=== PATIENT | male | born 1950 | race Caucasian/White ===

== ENCOUNTER 2021-07-10 09:12 | Outpatient (CLI) | payer MEDICARE | END 2021-07-10 09:13 | disposition home or self-care (01) | LOC: RT 09:12 | PROVIDERS: ATTEND Otolaryngology | DX: Z01.810 Encounter for preprocedural cardiovascular examination (principal); G47.33 Obstructive sleep apnea (adult) (pediatric) | CPT/HCPCS: 93005 ==

== ENCOUNTER 2021-08-24 08:55 | Emergency (ER) | payer BC, MEDICARE ==
--- NOTE | 2021-08-24 10:28 | XRAY Report ---
PROCEDURE: Chest 1 View X-Ray INDICATIONS: chest pain TECHNIQUE: One view of the chest was acquired. COMPARISON: None FINDINGS: Surgical changes and devices: There is a right-sided neurostimulator. Lungs and pleura: No pleural effusions or pneumothorax. Lungs are clear. Mediastinum: Mediastinal contours appear normal. Heart size is normal. Bones and chest wall: No suspicious bony lesions. Overlying soft tissues appear unremarkable. IMPRESSION: No acute cardiopulmonary process is seen. Right-sided neurostimulator. Reviewed by: Kimani Gifford MD on 08/24/2021 9:26 AM [facility] Approved by: Kimani Gifford MD on 08/24/2021 9:26 AM [facility] Station ID: [id number]
--- NOTE | 2021-08-24 10:55 | ED Physician Documentation ---
PD HPI URI - Stated complaint Stated Complaint: SOA/COUGH - Chief complaint Chief Complaint: Resp - History obtained from History obtained from: Patient - History of Present Illness Timing - onset: How many weeks ago (2) Timing duration: Weeks (2) Timing details: Gradual onset, Still present, Waxing and waning Associated symptoms: Nasal congestion, Productive cough. No: Fever Contributing factors: Other (immunized against covid). No: Sick contact Improves by: Rest, MDI/nebulizer Worsened by: Activity Similar symptoms before: Diagnosis (COPD) Recently seen: Not recently seen - Additional information Additional information: 70-year-old male with a history of COPD has developed a cough productive of yellow phlegm and some exertional dyspnea. He does have an albuterol inhaler which she states does seem to help a bit. He is now out of that. He has had to be on Symbicort previously and is continuing to take that. The patient is complaining of a tickle in the back of his throat that causes coughing paroxysms. He is coughing up yellow-green phlegm. He is having exertional dyspnea and when he stops to cough he is bringing up more phlegm. He has not had fever. He is immunized against Covid.He does not remember having to be on a course of prednisone with his COPD. Review of Systems Constitutional: denies: Fever Eyes: denies: Decreased vision Ears: denies: Ear pain Nose: reports: Rhinorrhea / runny nose, Congestion Throat: reports: Sore throat Cardiac: denies: Chest pain / pressure, Palpitations Respiratory: reports: Dyspnea, Cough GI: denies: Abdominal Pain, Nausea, Vomiting : denies: Dysuria, Frequency PD PAST MEDICAL HISTORY - Present Medications Home Medications: Ambulatory Orders Medication Instructions Recorded Confirmed Albuterol Sulf [Ventolin Hfa 1 - 2 puffs INH Q4HR PRN #1 inhaler 08/24/21 Inhaler] Amox/Clav 875/125 [Augmentin] 1 each PO Q12H #20 tablet 08/24/21 - Allergies Allergies/Adverse Reactions: Allergies Allergy/AdvReac Type Severity Reaction Status Date / Time No Known Drug Allergies Allergy Verified 08/24/21 09:13 PD ED PE NORMAL - Vitals Vital signs reviewed: Yes (Hypertensive) - General General: Alert and oriented X 3, No acute distress, Well developed/nourished - HEENT HEENT: Atraumatic, PERRL, EOMI, Other (The left TM is inflamed in the attic with distortion of landmarks the right is clear mucous membranes are dry) - Neck Neck: Supple, no meningeal sign, No bony TTP - Cardiac Cardiac: RRR, No murmur - Respiratory Respiratory: No respiratory distress, Clear bilaterally - Abdomen Abdomen: Soft, Non tender - Back Back: No CVA TTP, No spinal TTP - Derm Derm: Normal color, No rash - Extremities Extremities: No deformity, No edema - Neuro Neuro: Alert and oriented X 3, 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 parapertussis DNA (PCR) NOT DETECTED Nasal Coronavir 229E PCR NOT DETECTED Nasal Coronavir HKU1 PCR NOT DETECTED Nasal Coronavir NL63 PCR NOT DETECTED Nasal Coronavir OC43 PCR NOT DETECTED Nasal Enterovir/Rhinovir PCR NOT DETECTED Nasal Influenza B PCR NOT DETECTED Nasal Influenza A PCR NOT DETECTED Nasal Parainfluen 1 PCR NOT DETECTED Nasal Parainfluen 2 PCR NOT DETECTED Nasal Parainfluen 3 PCR NOT DETECTED Nasal Parainfluen 4 PCR NOT DETECTED Nasal RSV (PCR) NOT DETECTED Nasal B.pertussis DNA PCR NOT DETECTED Nasal C.pneumoniae (PCR) NOT DETECTED [place] Human Metapneumo PCR NOT DETECTED Nasal M.pneumoniae (PCR) NOT DETECTED Nasal SARS-CoV-2 (PCR) NOT DETECTED - Rads (name of study) chest Radiology: Prelim report reviewed (Impression: No acute cardiopulmonary process is seen. Right-sided neurostimulator.), EMP read indepedently, See rad report PD MEDICAL DECISION MAKING - ED course Complexity details: reviewed old records, reviewed results, re-evaluated marcela kaur, considered differential, d/w patient ED course: 70-year-old male with history of COPD has developed a cough productive of yellow phlegm he does endorse a tickle in the back of his throat causing the current coughing paroxysm and on examination he has otitis on the left side. His lungs sound clear to examination and a chest x-ray is without evidence of infiltrate. He is given a dose of dexamethasone his albuterol inhaler is refilled and we will place him on a course of Augmentin. Departure - Departure Disposition: 01 Home, Self Care Clinical Impression: Mild chronic obstructive pulmonary disease Otitis media Qualifiers: Otitis media type: suppurative Chronicity: acute Laterality: left Recurrence: not specified as recurrent Spontaneous tympanic membrane rupture: without spontaneous rupture Qualified Code(s): H66.002 - Acute suppurative otitis media without spontaneous rupture of ear drum, left ear Condition: Stable Instructions: ED COPD Flare, ED Otitis Media Acute Adult Follow-Up: Deonte Crawley MD [Primary Care Provider] - Prescriptions: Albuterol Sulf [Ventolin Hfa Inhaler] 1 - 2 puffs INH Q4HR PRN #1 inhaler PRN Reason: Shortness Of Air/Wheezing Amox/Clav 875/125 [Augmentin] 1 each PO Q12H #20 tablet Comments: Renny, today it appears you have an exacerbation of your COPD and a middle ear infection in the left ear. These 2 are related. The expectation is that with treatment given today you will begin to improve and steadily improve over the next several days. If you have worsening of symptoms or develop new symptoms follow-up here or with your primary care doctor. Medications -- albuterol inhaler and augmentin (antibiotic) have been e-scribed to [facility] in [place].
[2021-08-24 11:02] LABS: B. PARAPERTUSSIS- RESP PCR PAN NOT DETECTED; B. PERTUSSIS- RESP PCR PANEL NOT DETECTED; C. PNEUMONIAE- RESP PCR PANEL NOT DETECTED; CORONAVIRUS 229E-RESP PCR NOT DETECTED; CORONAVIRUS HKU1-RESP PCR NOT DETECTED; CORONAVIRUS NL63-RESP PCR NOT DETECTED; CORONAVIRUS OC43-RESP PCR NOT DETECTED; HUMAN METAPNEUMOVIRUS NOT DETECTED; INFLUENZA A- RESP PCR PANEL NOT DETECTED; INFLUENZA B - RESP PCR PANEL NOT DETECTED; M. PNEUMONIAE- RESP PCR PANEL NOT DETECTED; PARAINFLUENZA VIRUS 1 NOT DETECTED; PARAINFLUENZA VIRUS 2 NOT DETECTED; PARAINFLUENZA VIRUS 3 NOT DETECTED; PARAINFLUENZA VIRUS 4 NOT DETECTED; RHINOVIRUS/ENTEROVIRUS NOT DETECTED; RSV- RESP PCR PANEL NOT DETECTED; SARS-CoV-2 -RESP PCR PANEL NOT DETECTED
[2021-08-24] MEDS ORDERED: DEXAMETHASONE 10 MG/ML VIAL PO STA (11:26)
[2021-08-24] MEDS ORDERED: CHERRY SYRUP 10 ML UDC PO ONE (11:26)
[2021-08-24 11:40] VITALS: BP 146/97
== END 2021-08-24 11:40 | disposition home or self-care (01) ==
LOC: ED 08:55
DX: J44.9 Chronic obstructive pulmonary disease, unspecified (principal); H66.002 Acute suppurative otitis media without spontaneous rupture of ear drum, left ear; Z20.822 Contact with and (suspected) exposure to COVID-19
CPT/HCPCS: 71045; 87631; 99284; A9270; 0202U

== ENCOUNTER 2021-09-10 13:29 | Emergency (ER) | payer MEDICARE ==
[2021-09-10 13:52] VITALS: BP 140/99
[2021-09-10 14:24] LABS: RAPID STREP SCREEN Negative (Negative)
[2021-09-10] MEDS ORDERED: CHERRY SYRUP 10 ML UDC PO ONE (17:43)
[2021-09-10] MEDS ORDERED: DEXAMETHASONE 10 MG/ML VIAL PO STA (17:43)
--- NOTE | 2021-09-10 17:46 | ED Physician Documentation ---
PD HPI HEENT - Stated complaint Stated Complaint: SORE THROAT, R EAR PX - Chief complaint Chief Complaint: Heent - History obtained from History obtained from: Patient - History of Present Illness Timing - onset: How many days ago (4) Timing - duration: Days Timing - details: Gradual onset, Still present Location: Right ear, Nose, Throat Improves: Medication Worsens: Swalllowing Associated symptoms: Congestion, Rhinorrhea, Cough. No: Fever Similar symptoms before: Diagnosis (OM and COPD) Recently seen: Emergency Dept - Additional information Additional information: 70-year-old male with a history of COPD was recently in the emergency department at the beginning of the year with an exacerbation of his COPD and he was placed onto a course of Augmentin with otitis. He at that time hadImprovement in his symptoms and felt well. About 5 days after he began to have some symptoms of pain in his right ear a tickle in the back of his throat and some pain with swallowing. He has not had fever with this he does not believe he has been exposed anybody with COVID. He feels rundown and fatigued. Review of Systems Constitutional: denies: Fever Eyes: denies: Decreased vision Ears: reports: Ear pain Nose: reports: Rhinorrhea / runny nose, Congestion Throat: reports: Sore throat Cardiac: denies: Chest pain / pressure, Palpitations Respiratory: reports: Cough. denies: Dyspnea GI: denies: Vomiting PD PAST MEDICAL HISTORY - Present Medications Home Medications: Ambulatory Orders Medication Instructions Recorded Confirmed Albuterol Sulf [Ventolin Hfa 1 - 2 puffs INH Q4HR PRN #1 inhaler 08/24/21 Inhaler] Amox/Clav 875/125 [Augmentin] 1 each PO Q12H #20 tablet 08/24/21 Azithromycin [Zithromax] 250 mg PO DAILY #6 tablet 09/10/21 - Allergies Allergies/Adverse Reactions: Allergies Allergy/AdvReac Type Severity Reaction Status Date / Time No Known Drug Allergies Allergy Verified 09/10/21 13:52 PD ED PE NORMAL - Vitals Vital signs reviewed: Yes (hypertensive ) - General General: Alert and oriented X 3, No acute distress, Well developed/nourished - HEENT HEENT: Atraumatic, PERRL, EOMI, Other (both TM's are flush with rounding of the umbo. The pharynx is less involved. 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, No motor deficit, No sensory deficit, Normal speech Eye Opening: Spontaneous Motor: Obeys Commands Verbal: Oriented GCS Score: 15 - Psych Psych: Normal mood, Normal affect Results - Vitals Vitals: Vital Signs - 24 hr 09/10/21 13:48 Temperature 36.3 C L Heart Rate 95 Respiratory 16 Rate Blood Pressure 140/99 H O2 Saturation 99 Oxygen O2 Source Room air - Labs Labs: Laboratory Tests 09/10/21 13:53 Group A Strep Rapid Negative PD MEDICAL DECISION MAKING - ED course Complexity details: reviewed old records, reviewed results, re-evaluated patient, considered differential ED course: 70-year-old male with pain in the right ear a cough and congestion has otitis on exam today his lungs sound clear. He is swab for COVID again he is given a dose of dexamethasone and we will place him on a azithromycin today. I discussed findings with the patient and he would like to have a follow[place]up [place] Departure - Departure Disposition: 01 Home, Self Care Clinical Impression: Otitis media Qualifiers: Otitis media type: suppurative Chronicity: acute Laterality: bilateral Recurrence: recurrent Spontaneous tympanic membrane rupture: without spontaneous rupture Qualified Code(s): H66.006 - Acute suppurative otitis media without spontaneous rupture of ear drum, recurrent, bilateral Condition: Stable Instructions: ED Otitis Media Acute Adult Follow-Up: Deonte Crawley MD [Primary Care Provider] - Wilber Smith MD [Credentialed Staff Provider] - Prescriptions: Azithromycin [Zithromax] 250 mg PO DAILY #6 tablet Comments: Renny, today it looks like you have a recurrence of infection in her middle ear. Today it looks like it is in both ears. We have given you a dose of dexamethasone we will change her antibiotic to azithromycin. If you continue to have issues with this ear pain a visit to the ear nose and throat doctor may be in order. I have E scribed your medication to the community pharmacy here in [place]
== END 2021-09-10 17:59 | disposition home or self-care (01) ==
LOC: ED 13:29
DX: H66.006 Acute suppurative otitis media without spontaneous rupture of ear drum, recurrent, bilateral (principal)
CPT/HCPCS: 87070; 87430; 99283

== ENCOUNTER 2023-05-28 18:26 | Emergency (ER) | payer MEDICARE ==
[2023-05-28 18:34] VITALS: BP 125/71; O2SAT 98
[2023-05-28] MEDS ORDERED: ALBUTEROL 1 PUFF INH STA (18:46)
[2023-05-28] MEDS ORDERED: NIRMATRELVIR/RITONAVIR PREPACK PO STA (18:46)
--- NOTE | 2023-05-28 18:47 | ED Physician Documentation ---
History of Present Illness - Stated complaint Stated Complaint: C+ - Chief complaint Chief Complaint: Resp - Additonal information Additional information: 72-year-old male presents emergency department for evaluation of cough, shortness of air in the setting of COVID-19 infection. Reports his symptoms began this a.m. and he tested positive at home. He does have a cardiac history as well as a history of COPD for which she is taking albuterol and Symbicort. No fevers. No recent travel. Fully vaccinated and boosted for COVID-19. Review of Systems Constitutional: denies: Fever, Chills Cardiac: denies: Chest pain / pressure, Palpitations Respiratory: reports: Dyspnea, Cough GI: denies: Abdominal Pain : reports: Reviewed and negative Skin: reports: Reviewed and negative PD PAST MEDICAL HISTORY - Past Medical History Cardiovascular: Hypertension, High cholesterol Respiratory: COPD GI: GERD - Past Surgical History Past Surgical History: No - Present Medications Home Medications: Ambulatory Orders Medication Instructions Recorded Confirmed Albuterol Sulf [Ventolin Hfa 1 - 2 puffs INH Q4HR PRN #1 inhaler 08/24/21 05/28/23 Inhaler] Albuterol Sulf [Ventolin Hfa 1 - 2 puffs INH Q4HR PRN #1 each 05/28/23 Inhaler] Atorvastatin [Lipitor] 20 mg PO DAILY 05/28/23 05/28/23 Dextroamphetamine/Amphetamine 10 mg PO BID 05/28/23 05/28/23 [Adderall 10 mg Tablet] Fluoxetine HCl [Prozac] 20 mg PO BID 05/28/23 05/28/23 Metoprolol Succinate [Kapspargo 25 mg PO DAILY 05/28/23 05/28/23 Sprinkle] Minocycline HCl 100 mg PO BID 05/28/23 05/28/23 Mirabegron [Myrbetriq] 25 mg PO DAILY 05/28/23 05/28/23 Omeprazole 40 mg PO BID 05/28/23 05/28/23 Semaglutide [Ozempic] 0.25 mg SQ ONCE 05/28/23 05/28/23 - Allergies Allergies/Adverse Reactions: Allergies Allergy/AdvReac Type Severity Reaction Status Date / Time No Known Drug Allergies Allergy Verified 05/28/23 18:29 - Social History Does the pt smoke?: No Smoking Status: Never smoker PD ED PE NORMAL - General General: Alert and oriented X 3, No acute distress - HEENT HEENT: Atraumatic - Neck Neck: Supple, no meningeal sign, No adenopathy - Cardiac Cardiac: RRR, No murmur - Respiratory Respiratory: No respiratory distress, Clear bilaterally - Abdomen Abdomen: Normal bowel sounds, Soft, Non tender - Derm Derm: Normal color - Extremities Extremities: No deformity - Neuro Neuro: Alert and oriented X 3, shingler 2-12 intact Eye Opening: Spontaneous Motor: Obeys Commands Verbal: Oriented GCS Score: 15 Results - Vitals Vitals: Vital Signs - 24 hr 05/28/23 18:29 Temperature 37.4 C Heart Rate 100 Respiratory 20 Rate Blood Pressure 125/71 O2 Saturation 98 Oxygen O2 Source Room air - Rads (name of study) cxr Relevant Findings:: Final report received (No acute cardiopulmonary process) PD Medical Decision Making - ED course Complexity details: reviewed results, re-evaluated patient, d/w patient ED course: 72-year-old male who does have a history of COPD presents emergency department for evaluation of cough, congestion and shortness of air. Test positive for COVID-19 today. On evaluation he has unremarkable vital signs and cardiopulmonary auscultation. No hypoxia. Chest x-ray is interpreted by the radiologist shows no findings of pneumonia. Does not meet hospitalization criteria. He would be considered higher risk for COVID-19 related sequela and as such will be treated with Paxlovid. He is advised to hold his statin while on Paxlovid. Discussed routine conservative cares of COVID-19 infection at home as well as the usual emergent return precautions. Departure - Departure Disposition: 01 Home, Self Care Clinical Impression: COVID-19, History of COPD Condition: Stable Record reviewed to determine appropriate education?: Yes Prescriptions: Albuterol Sulf [Ventolin Hfa Inhaler] 1 - 2 puffs INH Q4HR PRN #1 each PRN Reason: Shortness Of Air/Wheezing Comments: You tested positive for COVID-19 today at home. Your chest x-ray does not show any findings of pneumonia. Your vital signs were good and your oxygen levels were normal. However with your cardiac and COPD history I think you would benefit from treatment of COVID-19 with the oral antiviral therapy Paxlovid. Please take as directed on the packaging. While on Paxlovid you should avoid your atorvastatin or lipid medications. Continue point you find you are having worsening symptoms, severe shortness of breath worsening cough or fevers despite this treatment please return to the ER for repeat evaluation. You do need to maintain quarantine for about 1 week from the onset of symptoms. Forms: PCP List
--- NOTE | 2023-05-28 18:52 | XRAY Report ---
PROCEDURE: Chest 1 View X-Ray INDICATIONS: chest pain TECHNIQUE: One view of the chest was acquired. COMPARISON: 08/24/2021. FINDINGS: Surgical changes and devices: Right chest wall stimulator is seen. Median sternotomy wires are also noted. Lungs and pleura: No pleural effusions or pneumothorax. Lungs are clear. Mediastinum: Mediastinal contours appear normal. Heart size is normal. Bones and chest wall: No suspicious bony lesions. Overlying soft tissues appear unremarkable. IMPRESSION: No acute cardiopulmonary process. Reviewed by: Gerald King MD on 05/28/2023 6:50 PM PDT Approved by: Gerald King MD on 05/28/2023 6:50 PM PDT Station ID: [id number]
== END 2023-05-28 19:18 | disposition home or self-care (01) ==
LOC: ED 18:26
DX: U07.1 COVID-19 (principal); E78.00 Pure hypercholesterolemia, unspecified; J44.9 Chronic obstructive pulmonary disease, unspecified
CPT/HCPCS: 71045; 94640; 94664; 99283; J3490

== ENCOUNTER 2023-07-16 16:05 | Emergency (ER) | payer MEDICARE ==
[2023-07-16 16:30] LABS: BASOPHILS % (AUTO) 0.7 %; EOSINOPHILS # (AUTO) 0.1 10^3/uL (0.0-0.7); EOSINOPHILS % (AUTO) 2.1 %; HCT - HEMATOCRIT 48.4 % (42.0-52.0); HGB - HEMOGLOBIN 15.4 g/dL (14.0-18.0); LYMPHOCYTES # (AUTO) 1.2 10^3/uL (1.5-3.5); LYMPHOCYTES % (AUTO) 20.2 %; MEAN CORPUSCULAR HEMOGLOBIN 30.3 pg (27.0-31.0); MEAN CORPUSCULAR HGB CONC 31.8 g/dL (32.0-36.0); MEAN CORPUSCULAR VOLUME 95.1 fL (80.0-94.0); MEAN PLATELET VOLUME 9.3 fL (7.4-11.4); MONOCYTES # (AUTO) 0.6 10^3/uL (0.0-1.0); MONOCYTES % (AUTO) 9.8 %; NEUTROPHILS # (AUTO) 3.8 10^3/uL (1.5-6.6); NEUTROPHILS % (AUTO) 66.9 %; PLT - PLATELET COUNT 152 10^3/uL (130-450); RED BLOOD COUNT 5.09 10^6/uL (4.70-6.10); RED CELL DISTRIBUTION WIDTH 13.7 % (12.0-15.0); WHITE BLOOD COUNT 5.7 x10^3/uL (4.8-10.8)
--- NOTE | 2023-07-16 16:39 | ED Physician Documentation ---
PD HPI FOCAL NEURO - Stated complaint Stated Complaint: DIZZY/GENERAL WEAKNESS - Chief complaint Chief Complaint: Neuro - History obtained from History obtained from: Patient - Additional information Additional information: 72-year-old gentleman presents by private vehicle with his . He has a history of valvular heart disease and was doing light work around the yard when he suddenly developed severe vertigo and imbalance and vomited once. He is better now. No history of vertigo. No headaches. He has had on and off earaches for the last week bilaterally. PD PAST MEDICAL HISTORY - Past Medical History Past Medical History: Yes Cardiovascular: Hypertension, High cholesterol Respiratory: COPD GI: GERD - Past Surgical History Past Surgical History: Yes Cardiovascular: Valve replacement - Present Medications Home Medications: Ambulatory Orders Medication Instructions Recorded Confirmed Albuterol Sulf [Ventolin Hfa 1 - 2 puffs INH Q4HR PRN #1 inhaler 08/24/21 05/28/23 Inhaler] Albuterol Sulf [Ventolin Hfa 1 - 2 puffs INH Q4HR PRN #1 each 05/28/23 Inhaler] Atorvastatin [Lipitor] 20 mg PO DAILY 05/28/23 05/28/23 Dextroamphetamine/Amphetamine 10 mg PO BID 05/28/23 05/28/23 [Adderall 10 mg Tablet] Fluoxetine HCl [Prozac] 20 mg PO BID 05/28/23 05/28/23 Metoprolol Succinate [Kapspargo 25 mg PO DAILY 05/28/23 05/28/23 Sprinkle] Minocycline HCl 100 mg PO BID 05/28/23 05/28/23 Mirabegron [Myrbetriq] 25 mg PO DAILY 05/28/23 05/28/23 Omeprazole 40 mg PO BID 05/28/23 05/28/23 Semaglutide [Ozempic] 0.25 mg SQ ONCE 05/28/23 05/28/23 predniSONE [Deltasone] 20 mg PO [id number] #21 tab 07/16/23 - Allergies Allergies/Adverse Reactions: Allergies Allergy/AdvReac Type Severity Reaction Status Date / Time No Known Drug Allergies Allergy Verified 05/28/23 18:29 - Social History Does the pt smoke?: No Smoking Status: Never smoker PD ED PE NORMAL - Vitals Vital signs reviewed: Yes - General General: Alert and oriented X 3, No acute distress - HEENT HEENT: PERRL, EOMI, Ears normal - Neck Neck: Supple, no meningeal sign, No bony TTP - Cardiac Cardiac: RRR, Other (3 out of 6 decrescendo systolic murmur heard best at the right upper sternal border) - Respiratory Respiratory: No respiratory distress, Clear bilaterally - Abdomen Abdomen: Normal bowel sounds, Soft, Non tender - Neuro Neuro: Alert and oriented X 3, online producer 2-12 intact, No motor deficit, No sensory deficit, Normal speech Eye Opening: Spontaneous Motor: Obeys Commands Verbal: Oriented GCS Score: 15 NIHSS - Time Time: 16:30 - Level of Consciousness Level of consciousness: (0) Alert, Keenly responsive LOC Questions: (0) Answers both Q's correct LOC Commands: (0) Performs both correctly - Gaze Best Gaze: (0) Normal - Visual Visual: (0) No loss - Facial Palsy Facial Palsy: (0) Normal, symmetrical movement - Motor Arms (both separate) Motor Arm (right): (0) No drift Motor Arm (left): (0) No drift - Motor Legs (both separate) Motor Leg (right): (0) No drift Motor Leg (left): (0) No drift - Limb Ataxia Limb Ataxia: (0) Absent - Sensory Sensory: (0) Normal - Best Language Best Language: (0) No aphasia - Dysarthria Dysarthria: (0) Normal - Extinction and Inattention (formally neg Extinction and inattention: (0) No abnormality - Total Score/Results Total Score/Result: 0 Results - Vitals Vitals: Vital Signs - 24 hr 07/16/23 07/16/23 07/16/23 16:15 16:48 17:18 Temperature 36.6 C Heart Rate 73 71 74 Respiratory 22 17 17 Rate Blood Pressure 121/75 123/85 H 115/81 H O2 Saturation 97 95 97 07/16/23 07/16/23 07/16/23 17:30 18:00 18:30 Temperature Heart Rate 72 77 78 Respiratory 18 12 18 Rate Blood Pressure 116/80 121/61 116/85 H O2 Saturation 98 96 97 07/16/23 19:00 Temperature Heart Rate 76 Respiratory 18 Rate Blood Pressure 110/80 O2 Saturation 97 Oxygen O2 Source Room air - EKG (time done) 1622 EKG releavant findings:: EKG personally interpreted by author of this note. Relevant findings are: Rate: Rate (enter#) (73) Rhythm: NSR, LAE [place]: Normal Intervals: Normal ME QRS: Normal Ischemia: Non specific changes - Labs Labs: Laboratory Tests 07/16/23 07/16/23 07/16/23 16:21 16:23 16:23 WBC 5.7 RBC 5.09 Hgb 15.4 Hct 48.4 MCV 95.1 H MCH 30.3 MCHC 31.8 L RDW 13.7 Plt Count 152 MPV 9.3 Neut # (Auto) 3.8 Lymph # (Auto) 1.2 L [place] # (Auto) 0.6 Eos # (Auto) 0.1 Baso # (Auto) 0.0 Absolute Nucleated RBC 0.00 Nucleated RBC % 0.0 Sodium 140 Potassium 3.8 Chloride 104 Carbon Dioxide 28 Anion Gap 8.0 BUN 20 Creatinine 1.0 Estimated GFR (MDRD) 74 L Glucose 98 POC Whole Bld Glucose 100 Calcium 9.9 Total Bilirubin 0.6 AST 40 ALT 45 Alkaline Phosphatase 54 Troponin I High Sens 28.5 H* Total Protein 7.1 Albumin 4.4 Globulin 2.7 Albumin/Globulin Ratio 1.6 Lipase 39 07/16/23 19:13 WBC RBC Hgb Hct MCV MCH MCHC RDW Plt Count MPV Neut # (Auto) Lymph # (Auto) [place] # (Auto) Eos # (Auto) Baso # (Auto) Absolute Nucleated RBC Nucleated RBC % Sodium Potassium Chloride Carbon Dioxide Anion Gap BUN Creatinine Estimated GFR (MDRD) Glucose POC Whole Bld Glucose Calcium Total Bilirubin AST ALT Alkaline Phosphatase Troponin I High Sens 30.6 H* Total Protein Albumin Globulin Albumin/Globulin Ratio Lipase PD Medical Decision Making - ED course ED course: 72-year-old gentleman with a resolved vertigo attack, no stroke symptoms. No stroke findings. Will observe in the ER for a time but he is better at this point without specific intervention. Troponin was ordered in triage and is modestly elevated. He has a history of valvular heart disease but no real symptoms currently to suggest ischemic heart disease that is active. Given the positive finding plan to recheck it after 2 hours to make sure that is not actively changing consistent with an ACS. At this time though the history and physical is not consistent with ACS. The is having to go home as she does not drive in the dark, but if there are any changes I will call her at [phone]. His troponin a few hours later was essentially flat and again without chest pain so I do not think he has had any an acute ischemic problem. He has known valvular disease and probably always has a slight troponinemia. From the dizziness perspective he was feeling much better and still had no focal neurologic symptoms. He ambulated in the department without issue. I do think he may have labyrinth-itis and he is started on steroids. Departure - Departure Disposition: Home, Self Care Clinical Impression: Vertigo Acute labyrinthitis Qualifiers: Laterality: unspecified laterality Qualified Code(s): H83.09 - Labyrinthitis, unspecified ear Condition: Good Record reviewed to determine appropriate education?: Yes Instructions: ED Vertigo Unspecified Prescriptions: predniSONE [Deltasone] 20 mg PO [id number] #[id number] tab Comments: You were seen today for vertigo and I think probably a case of an acute labyrinthitis. If you continue to have symptoms over the next few days into next week reasonable to follow-up with an ENT physician, the closest is in [place], phone number is [phone]. We did note that she had a very mildly elevated troponin today, this is a measure of heart strain or damage. Because it remained flat over a few hours I presume this is from your chronic valvular heart disease but reasonable to mention to your armhole baster hand, calling for the next available appointment. Return for new or worsening symptoms. Forms: PCP List
--- NOTE | 2023-07-16 16:48 | XRAY Report ---
PROCEDURE: Chest 1 View X-Ray INDICATIONS: Chest pain TECHNIQUE: One view of the chest was acquired. COMPARISON: 05/28/2023. FINDINGS: Surgical changes and devices: Right chest generator, possibly deep brain stimulator. Sternotomy wires. Lungs and pleura: No pleural effusions or pneumothorax. Mild diffuse interstitial prominence. Findin gs are similar to previous. Mediastinum: Mediastinal contours appear normal. Heart size is normal. Bones and chest wall: No suspicious bony lesions. Overlying soft tissues appear unremarkable. IMPRESSION: Stable mild diffuse interstitial prominence. Reviewed by: Rd Trinh MD on 07/16/2023 4:47 PM PST Approved by: Rd Trinh MD on 07/16/2023 4:47 PM PST Station ID: [id number]
[2023-07-16 16:51] LABS: ALBUMIN 4.4 g/dL (3.2-5.5); ALBUMIN/GLOBULIN RATIO 1.6 (1.0-2.2); BILIRUBIN,TOTAL 0.6 mg/dL (0.2-1.0); CALCIUM 9.9 mg/dL (8.5-10.3); POTASSIUM 3.8 mmol/L (3.5-4.5); TOTAL PROTEIN 7.1 g/dL (6.4-8.9)
[2023-07-16 17:02] LABS: TROPONIN I HIGH SENSITIVITY 28.5 ng/L (2.3-19.7)
[2023-07-16] MEDS ORDERED: predniSONE 20 MG TABLET PO STA (20:11)
[2023-07-16 20:18] VITALS: BP 112/82; O2SAT 98
== END 2023-07-16 20:20 | disposition home or self-care (01) ==
LOC: ED 16:05
DX: R42 Dizziness and giddiness (principal); H83.09 Labyrinthitis, unspecified ear; I10 Essential (primary) hypertension
CPT/HCPCS: 36415; 71045; 80053; 83690; 84484; 85025; 93005; 99284; J7512

== ENCOUNTER 2023-10-11 10:07 | Emergency (ER) | payer MEDICARE ==
[2023-10-11 10:41] VITALS: BP 129/89; O2SAT 100
--- NOTE | 2023-10-11 10:53 | XRAY Report ---
PROCEDURE: Chest 2V INDICATIONS: cough TECHNIQUE: 2 views of the chest were acquired. COMPARISON: Chest x-ray 07/16/2023 FINDINGS: Surgical changes and devices: Pacemaker and sternal wires. Lungs and pleura: No pleural effusions or pneumothorax. Lungs are clear. Mediastinum: Mediastinal contours appear normal. Heart size is enlarged. Bones and chest wall: No suspicious bony lesions. Overlying soft tissues appear unremarkable. IMPRESSION: No acute cardiopulmonary process. Reviewed by: Veronica Buenrostro MD on 10/11/2023 10:51 AM [facility] Approved by: Veronica Buenrostro MD on 10/11/2023 10:51 AM [facility] Station ID: [id number]
[2023-10-11 12:11] LABS: B. PARAPERTUSSIS- RESP PCR PAN NOT DETECTED; B. PERTUSSIS- RESP PCR PANEL NOT DETECTED; C. PNEUMONIAE- RESP PCR PANEL NOT DETECTED; CORONAVIRUS 229E-RESP PCR NOT DETECTED; CORONAVIRUS HKU1-RESP PCR NOT DETECTED; CORONAVIRUS NL63-RESP PCR NOT DETECTED; CORONAVIRUS OC43-RESP PCR NOT DETECTED; HUMAN METAPNEUMOVIRUS NOT DETECTED; INFLUENZA A- RESP PCR PANEL NOT DETECTED; INFLUENZA B - RESP PCR PANEL NOT DETECTED; M. PNEUMONIAE- RESP PCR PANEL NOT DETECTED; PARAINFLUENZA VIRUS 1 NOT DETECTED; PARAINFLUENZA VIRUS 2 NOT DETECTED; PARAINFLUENZA VIRUS 3 NOT DETECTED; PARAINFLUENZA VIRUS 4 NOT DETECTED; RHINOVIRUS/ENTEROVIRUS NOT DETECTED; RSV- RESP PCR PANEL NOT DETECTED; SARS-CoV-2 -RESP PCR PANEL NOT DETECTED
--- NOTE | 2023-10-11 13:18 | ED Physician Documentation ---
History of Present Illness - Stated complaint Stated Complaint: COUGH - Chief complaint Chief Complaint: General - History obtained from History obtained from: Patient - History of Present Illness Timing: How many weeks ago (2) Pain level max: 0 Pain level now: 0 - Additonal information Additional information: Patient is a 72-year-old male who presents to the emergency department with a cough x 2 weeks. No fevers. No chills. Sputum is occasionally yellow. No significant changes. He states he has inhalers at home but is not using them. Does not smoke. Has not taken a COVID test. No body aches. No changes to medications. Has not taken anything for the cough. No abdominal pain, nausea, vomiting. No difficulty breathing. Has had rhinorrhea and congestion as well. Review of Systems Constitutional: denies: Fever, Chills GI: denies: Vomiting, Diarrhea Skin: denies: Rash Musculoskeletal: denies: Neck pain, Back pain Neurologic: denies: Headache PD PAST MEDICAL HISTORY - Past Medical History Past Medical History: Yes Cardiovascular: Hypertension, High cholesterol Respiratory: COPD Neuro: None Endocrine/Autoimmune: None GI: GERD : None Psych: None Musculoskeletal: None - Past Surgical History Past Surgical History: Yes Cardiovascular: Valve replacement - Present Medications Home Medications: Ambulatory Orders Medication Instructions Recorded Confirmed Atorvastatin [Lipitor] 20 mg PO DAILY 05/28/23 10/11/23 Dextroamphetamine/Amphetamine 10 mg PO BID 05/28/23 10/11/23 [Adderall 10 mg Tablet] Fluoxetine HCl [Prozac] 20 mg PO DAILY 05/28/23 10/11/23 Metoprolol Succinate [Kapspargo 25 mg PO DAILY 05/28/23 10/11/23 Sprinkle] Minocycline HCl 100 mg PO BID 05/28/23 10/11/23 Mirabegron [Myrbetriq] 25 mg PO DAILY 05/28/23 10/11/23 Omeprazole 40 mg PO BID 05/28/23 10/11/23 Benzonatate [Tessalon] 200 mg PO TID PRN #30 cap 10/11/23 Dextroamphetamine/Amphetamine 25 mg PO DAILY 10/11/23 10/11/23 [Adderall Xr 25 mg Capsule] - Allergies Allergies/Adverse Reactions: Allergies Allergy/AdvReac Type Severity Reaction Status Date / Time No Known Drug Allergies Allergy Verified 10/11/23 10:31 - Social History Does the pt smoke?: No Smoking Status: Former smoker Does the pt drink ETOH?: Yes ETOH Use: Liquor Does the pt have substance abuse?: No - Immunizations Immunizations are current?: Yes - POLST Patient has POLST: No PD ED PE NORMAL - Vitals Vital signs reviewed: Yes - General General: Alert and oriented X 3, No acute distress - HEENT HEENT: PERRL, Ears normal, Moist mucous membranes, Pharynx benign - Neck Neck: Supple, no meningeal sign - Cardiac Cardiac: RRR, Strong equal pulses - Respiratory Respiratory: No respiratory distress, Other (Mild wheeze bilaterally with mildly diminished breath sounds bilaterally) - Abdomen Abdomen: Soft, Non tender, Non distended - Derm Derm: Warm and dry - Neuro Neuro: Alert and oriented X 3 - Psych Psych: Normal mood, Normal affect Results - Vitals Vitals: Vital Signs - 24 hr 10/11/23 10:31 Temperature 36.4 C L Heart Rate 80 Respiratory 16 Rate Blood Pressure 129/89 H O2 Saturation 100 Oxygen O2 Source Room air - Labs Labs: Laboratory Tests 10/11/23 10:35 Nasal Adenovirus (PCR) NOT DETECTED Nasal B. parapertussis DNA (PCR) NOT DETECTED Nasal Coronavir 229E PCR NOT DETECTED Nasal Coronavir HKU1 PCR NOT DETECTED Nasal Coronavir NL63 PCR NOT DETECTED Nasal Coronavir OC43 PCR NOT DETECTED Nasal Enterovir/Rhinovir PCR NOT DETECTED Nasal Influenza B PCR NOT DETECTED Nasal Influenza A PCR NOT DETECTED Nasal Parainfluen 1 PCR NOT DETECTED Nasal Parainfluen 2 PCR NOT DETECTED Nasal Parainfluen 3 PCR NOT DETECTED Nasal Parainfluen 4 PCR NOT DETECTED Nasal RSV (PCR) NOT DETECTED Nasal B.pertussis DNA PCR NOT DETECTED Nasal C.pneumoniae (PCR) NOT DETECTED [place] Human Metapneumo PCR NOT DETECTED Nasal M.pneumoniae (PCR) NOT DETECTED Nasal SARS-CoV-2 (PCR) NOT DETECTED - Rads (name of study) cxr Relevant Findings:: Final report received, See rad report PD Medical Decision Making - ED course Complexity details: reviewed results, re-evaluated patient, considered differential, d/w patient ED course: No acute findings on respiratory PCR or chest x-ray. No evidence of pneumonia. No hypoxia. No respiratory distress. Patient is very well-appearing, nontoxic. He did have mild wheezing was given a DuoNeb treatment here. Recommend that he use his inhalers as prescribed at home. Will prescribe Tessalon for home. No indication for an antibiotic at this time. Patient counseled regarding signs and symptoms for which I believe and urgent re-evaluation would be necessary. Patient with good understanding of and agreement to plan and is comfortable going home at this time This document was made in part using voice recognition software. While efforts are made to proofread this document, sound alike and grammatical errors may occur. Departure - Departure Disposition: 01 Home, Self Care Clinical Impression: Viral URI Condition: Good Instructions: ED Viral Syndrome Follow-Up: Deonte Crawley MD [Primary Care Provider] - As Needed Prescriptions: Benzonatate [Tessalon] 200 mg PO TID PRN #30 cap PRN Reason: Cough Comments: Your prescription was sent to [facility] in [place]. Your chest x-ray does not show any evidence of pneumonia. There is no evidence of bacterial infection at this time that require an antibiotic. This appears to be a viral syndrome, the cough can last from anywhere from 2 to 6 weeks.
[2023-10-11] MEDS: IPRATROPIUM/ALBUTEROL 3 ML NEB INH STA (13:22)
== END 2023-10-11 13:33 | disposition home or self-care (01) ==
LOC: ED 10:07
DX: J06.9 Acute upper respiratory infection, unspecified (principal); B97.89 Other viral agents as the cause of diseases classified elsewhere; I10 Essential (primary) hypertension; E78.00 Pure hypercholesterolemia, unspecified; J44.9 Chronic obstructive pulmonary disease, unspecified; Z79.899 Other long term (current) drug therapy; Z87.891 Personal history of nicotine dependence
CPT/HCPCS: 87633; 94640; 99283; 99284